=== PATIENT | male | born 1965 | race African-American/Black ===

== ENCOUNTER 2020-05-06 13:54 | Inpatient (IN) | payer MEDICAID, OTHER ==
[~2020-05-06] VITALS: Ht 170.2 cm; Wt 102.7 kg
[2020-05-06 15:15] LABS: Basophils # (auto) 0 10 ^3/uL (0-0.2); Basophils % (auto) 0.9 % (0.0-2.0); Eosinophils # (auto) 0.1 10 ^3/uL (0-0.8); Eosinophils % (auto) 1.2 % (0.0-7.0); Hematocrit 47.8 % (41.0-53.0); Hemoglobin 16.1 g/dL (13.5-17.5); Lymphocytes % (auto) 18.8 % (10.0-50.0); Mean Corpuscular Hemoglobin 32.7 pg (28.0-32.0); Mean Corpuscular Hgb Conc. 33.6 g/dL (32.0-36.0); Mean Corpuscular Volume 97.3 fL (80.0-100.0); Monocytes # (auto) 0.4 10 ^3/uL (0-1.3); Monocytes % (auto) 6.4 % (0.0-12.0); Neutrophils % (auto) 72.7 % (37.0-80.0); Nucleated Red Blood Cells % 0.1 %; Platelet Count (auto) 249 10^3/uL (140-450); Red Blood Cells 4.91 10^6/uL (4.5-5.90); Red Cell Distribution Width 13.1 % (11.8-14.3); White Blood Cell 5.5 10^3/uL (4.4-10.8)
[2020-05-06 15:33] LABS: Albumin 4.1 g/dL (3.4-5.0); Anion Gap 4 (5-15); BUN/Creatinine Ratio 8.5; Blood Urea Nitrogen 10 mg/dL (7-18); Calcium 8.5 mg/dL (8.5-10.1); Carbon Dioxide 29 mmol/L (21-32); Chloride 101 mmol/L (98-107); GFR African American 83 mL/min; GFR Non-African American 68 mL/min; Glucose 105 mg/dL (74-106); Magnesium 2.5 mg/dL (1.6-2.6); Potassium 4.5 mmol/L (3.5-5.1); Sodium 134 mmol/L (136-145)
[2020-05-06 15:39] LABS: Alanine Aminotransferase 37 U/L (16-61); Alkaline Phosphatase 61 U/L (45-117); Aspartate Aminotransferase 20 U/L (15-37); Bilirubin, Total 0.5 mg/dL (0.2-1.0); Total Protein 7.9 g/dL (6.4-8.2)
[2020-05-06] MEDS ORDERED: HYDROcodone-ACET 5/325MG TAB PO PRN (19:00)
[2020-05-06] MEDS ORDERED: ACETAMINOPHEN 500 MG TAB PO PRN (19:00)
[2020-05-06] MEDS ORDERED: ONDANSETRON HCL 4 MG/2 ML VIAL IV PRN (19:00)
[2020-05-06] MEDS ORDERED: MORPHINE SULF INJ 2 MG/ML SYRINGE 1ML IV PRN ×2 (19:00)
[2020-05-06] MEDS ORDERED: NITROGLYCERIN 0.4 MG SL TAB SL PRN (19:00)
[2020-05-06] MEDS ORDERED: hydrALAZINE HCL 20 MG/ML VL IV PRN (19:00)
[2020-05-06 19:18] LABS: Cholesterol 202 mg/dL (< 200)
[2020-05-06 19:21] LABS: HDL Cholesterol 40 mg/dL (40-59); LDL Cholesterol 138 mg/dL (< 100); Triglycerides 161 mg/dL (< 150)
[2020-05-06 20:07] VITALS: BP 143/66
[2020-05-06 22:06] VITALS: BP 143/66
[2020-05-06] MEDS: ATORVASTATIN 20 MG TAB PO SCH (23:06)
[2020-05-06] MEDS: TEMAZEPAM 15 MG CAP PO PRN (23:06)
[2020-05-07] MEDS ORDERED: LOSA100T33 PO (04:04)
[2020-05-07] MEDS ORDERED: CHOL20007 PO (04:04)
[2020-05-07] MEDS ORDERED: LEVO88TA36 PO (04:04)
[2020-05-07] MEDS ORDERED: AML5T PO (04:04)
[2020-05-07] MEDS ORDERED: ATOR20TA PO (04:04)
[2020-05-07] MEDS ORDERED: PANT40TA2 PO (04:04)
[2020-05-07 05:00] VITALS: BP 153/76
[2020-05-07 08:57] VITALS: BP 142/81
[2020-05-07] MEDS ORDERED: LORazepam 2MG/ML-1ML VIAL IV PRN (09:00)
[2020-05-07] MEDS ORDERED: LISINOPRIL 20 MG TAB PO SCH (10:00)
[2020-05-07] MEDS: FAMOTIDINE 20 MG TAB PO SCH (10:00)
[2020-05-07] MEDS: amLODIPine BESYLATE 5 MG TAB PO SCH (10:06)
[2020-05-07] MEDS: ASPirin 81 mg TAB PO SCH (10:06)
[2020-05-07 10:20] VITALS: BP 142/81
[2020-05-07 13:00] VITALS: BP 140/83
[2020-05-07 17:00] VITALS: BP 140/64
[2020-05-07] MEDS ORDERED: CALCIUM CARB 500 MG CHEW TAB PO PRN (18:30)
[2020-05-07] MEDS: CALCIUM CARB 500 MG CHEW TAB PO PRN (18:42)
[2020-05-07] MEDS ORDERED: LEVO50TA7 PO (21:17)
[2020-05-07] MEDS: ATORVASTATIN 20 MG TAB PO SCH (21:20)
[2020-05-07] MEDS: TEMAZEPAM 15 MG CAP PO PRN (21:56)
[2020-05-07 22:00] VITALS: BP 127/64
[2020-05-08 05:00] VITALS: BP 124/77
[2020-05-08 09:00] VITALS: BP 138/78
[2020-05-08] MEDS: FAMOTIDINE 20 MG TAB PO SCH ×2 (09:49→10:00)
[2020-05-08] MEDS ORDERED: CHOL20007 OR (11:15)
[2020-05-08] MEDS ORDERED: LEVOTHYROXINE SODIUM 50 MCG TAB PO ONE ×2 (11:15→11:30)
[2020-05-08] MEDS ORDERED: LOSARTAN POTASSIUM 50 MG TAB PO ONE (11:30)
[2020-05-08] MEDS: ASPirin 81 mg TAB PO SCH (11:43)
[2020-05-08] MEDS: amLODIPine BESYLATE 5 MG TAB PO SCH (11:44)
[2020-05-08 13:00] VITALS: BP 135/77
[2020-05-08 16:57] VITALS: BP 151/78
[2020-05-08] MEDS: CALCIUM CARB 500 MG CHEW TAB PO PRN (20:51)
[2020-05-08] MEDS: ATORVASTATIN 20 MG TAB PO SCH (21:52)
[2020-05-08] MEDS: TEMAZEPAM 15 MG CAP PO PRN (21:52)
[2020-05-08 22:00] VITALS: BP 148/89
[2020-05-09 05:00] VITALS: BP 125/82
[2020-05-09] MEDS ORDERED: LEVOTHYROXINE SODIUM 50 MCG TAB PO SCH (07:00)
[2020-05-09 08:55] VITALS: BP 158/74
[2020-05-09] MEDS: amLODIPine BESYLATE 5 MG TAB PO SCH (09:02)
[2020-05-09] MEDS: FAMOTIDINE 20 MG TAB PO SCH (09:03)
[2020-05-09] MEDS: ASPirin 81 mg TAB PO SCH (09:05)
[2020-05-09] MEDS ORDERED: HCTZ 25 MG TAB PO SCH (10:00)
[2020-05-09] MEDS ORDERED: LOSARTAN POTASSIUM 50 MG TAB PO SCH (10:00)
[2020-05-09 11:52] VITALS: BP 134/81
[2020-05-09 12:55] VITALS: BP 151/87
[2020-05-09] MEDS ORDERED: AMLO10TA13 PO (14:24)
[2020-05-09] MEDS ORDERED: ATOR40TA52 PO (14:24)
[2020-05-09] MEDS ORDERED: PANT40TA2 PO (14:24)
[2020-05-09] MEDS ORDERED: LEV50T PO (14:25)
[2020-05-09] MEDS ORDERED: HCTZ25T PO (14:53)
[2020-05-09] MEDS ORDERED: LOSA-39 PO (14:54)
[2020-05-09 15:25] VITALS: BP 151/87
== END 2020-05-09 17:00 | disposition home or self-care (01) | DRG 58 ==
LOC: EDBD 13:54 → ER 13:54 → TELE 13:55 → TELE-WESTW 20:13
PROVIDERS: ADMIT Nurse Practitioner Acute Care; ATTEND Internal Medicine Nephrology
PROC: 5A09357 Assistance with Respiratory Ventilation, Less than 24 Consecutive Hours, Continuous Positive Airway Pressure (ICD-10-PCS; principal; 2020-05-07)
DX: H55.00 Unspecified nystagmus (principal); E03.9 Hypothyroidism, unspecified; R55 Syncope and collapse; E66.9 Obesity, unspecified; I10 Essential (primary) hypertension; G47.10 Hypersomnia, unspecified; E78.5 Hyperlipidemia, unspecified; H53.8 Other visual disturbances; F17.210 Nicotine dependence, cigarettes, uncomplicated; Z96.642 Presence of left artificial hip joint; H93.12 Tinnitus, left ear; Z79.82 Long term (current) use of aspirin; Z79.899 Other long term (current) drug therapy; Z82.49 Family history of ischemic heart disease and other diseases of the circulatory system; Z83.3 Family history of diabetes mellitus; Z68.37 Body mass index [BMI] 37.0-37.9, adult
CPT/HCPCS: 36415; 70450; 70551; 71045; 80053; 80061; 83735; 84443; 84484; 85025; 93005; 93306; 93886; 94660; G0378; J2405